=== PATIENT | female | born 1995 | race Caucasian/White ===

== ENCOUNTER 2016-08-06 18:16 | Emergency (ER) | payer OTHER ==
[~2016-08-06] VITALS: Ht 175.3 cm; Wt 64.4 kg
--- NOTE | 2016-08-06 19:15 | ED SKIN/ALLERGY COMPLAINT ---
History of Present Illness General Chief Complaint: Animal/Insect Bite Stated Complaint: SCRATCHED BY CAT Source: patient Exam Limitations: no limitations Vital Signs & Intake/Output Vital Signs & Intake/Output Vital Signs Date Time Temp Pulse Resp B/P Pulse O2 O2 Flow FiO2 Ox Delivery Rate 08/06 2026 97.8 94 18 124/60 100 Room Air 08/06 1854 98.7 88 20 121/77 99 Room Air ED Intake and Output 08/07 0000 08/06 1200 Intake Total 0 Output Total Balance 0 Intake, Oral 0 Patient 142 lb Weight Allergies Coded Allergies: No Known Allergies (08/06/16) Reconcile Medications Amoxicillin/Potassium Clav (Augmentin 875-125 Tablet) 875 MG-125 MG TABLET 1 TAB PO BID infection prevention Triage Note: TRIAGE: PT TO ER C/C STRAY CAT SCRATCH TO RIGHT WRIST/HAND AREA 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 Triage Nurses Notes Reviewed? yes : No Patient currently breastfeeds: No HPI: 20 yo woman, presents after she was scratched and bit by a stray kitten. She notes that she found a stray cat at [facility]. She tried to attend to the cat. The cat scratched her on her right wrist and bit her on her left hand finger. The cat then ran into the traffic and . Past History Travel History Traveled to [place] past 21 day No Medical History Any Pertinent Medical History? 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 No Review of Systems Review of Systems Constitutional: Reports: no symptoms. EENTM: Reports: no symptoms. Respiratory: Reports: no symptoms. Cardiovascular: Reports: no symptoms. GI: Reports: no symptoms. Genitourinary: Reports: no symptoms. Musculoskeletal: Reports: no symptoms. Skin: Reports: no symptoms. Neurological/Psychological: Reports: no symptoms. Hematologic/Endocrine: Reports: no symptoms. Immunologic/Allergic: Reports: no symptoms. All Other Systems: Reviewed and Negative Physical Exam Physical Exam General Appearance: well developed/nourished, mild distress Head: atraumatic Eyes: Bilateral: normal appearance. Ears, Nose, Throat: normal pharynx, normal ENT inspection, hearing grossly normal Neck: normal inspection, supple Respiratory: normal breath sounds Cardiovascular: regular rate/rhythm Gastrointestinal: soft, non-tender Back: normal inspection Extremities: normal range of motion, no edema, right hand 2 superficial scratches. left palm - > punctate lesion at palmaar aspect at distal 2nd mcp. No sign of infection. ROM is normal Neurologic/Psych: awake, alert, oriented x 3, normal mood/affect Lymphatic: no anterior cervical jossie Progress Differential Diagnosis: cat scratch. cat bite. Plan of Care: Current Medications Sig/Robert Start time Last Medication Dose Stop Time Status Admin Amoxicillin/ 1,000 MG ONCE ONE 08/06 1944 UNVr Clavulanate Potassium 08/06 1945 (Augmentin) Rabies Immune 1,200 UNITS ONCE ONE 08/06 1944 UNVr Globulin 08/06 1945 (Rabies Immune Globlulin Inj) Rabies Vaccine 1 SYR ONCE ONE 08/06 1944 UNVr (Rabies (Vaccine) 08/06 1945 Inj (1ML)) Departure Departure Disposition: HOME OR SELF CARE Condition: Stable Clinical Impression Primary Impression: Cat scratch Secondary Impressions: Cat bite Referrals: CHARMAINE JEFFERSON,BELIA Wesley (PCP/Family) Departure Forms: Customer Survey General Discharge Information Prescriptions: Current Visit Scripts Amoxicillin/Potassium Clav (Augmentin 875-125 Tablet) 1 TAB PO BID #14 TAB Comments pt received rabies vaccine, rabies immunoglobulin, and augmentin... pt instructed to follow up to complete rabies vaccine. Pt also given rx for augmentin and to follow up in 2 days for wound check. Signs and symptoms of infection discussed with patient.
[2016-08-06] MEDS ORDERED: AUGMENTIN 875-1 EACH PO (19:46)
[2016-08-06 20:27] VITALS: BP 124/60
== END 2016-08-06 21:15 ==
LOC: ERH 18:16
DX: S61.452A Open bite of left hand, initial encounter (principal); S60.811A Abrasion of right wrist, initial encounter; W55.01XA Bitten by cat, initial encounter
CPT/HCPCS: 90376; 90471; J3490

== ENCOUNTER 2016-08-21 18:23 | Emergency (ER) | payer OTHER ==
[~2016-08-21] VITALS: Ht 175.3 cm; Wt 63.5 kg
[~2016-08-21 18:23] MED LIST: AUGMENTIN 875-1 EACH PO
[2016-08-21 18:27] VITALS: BP 128/79
--- NOTE | 2016-08-21 18:39 | ED GENERAL ADULT ---
History of Present Illness General Chief Complaint: General Adult Stated Complaint: FOLLOW UP RABIES VACCINE Source: patient, old records Exam Limitations: no limitations Vital Signs & Intake/Output Vital Signs & Intake/Output Vital Signs Date Time Temp Pulse Resp B/P Pulse O2 O2 Flow FiO2 Ox Delivery Rate 08/21 1827 97.8 93 16 128/79 99 Room Air Allergies Coded Allergies: No Known Allergies (08/06/16) Reconcile Medications Amoxicillin/Potassium Clav (Augmentin 875-125 Tablet) 875 MG-125 MG TABLET 1 TAB PO BID infection prevention Triage Note: PT HERE FOR RABIES SHOT STATES SHE WAS SUPPOSE TO COME BACK ON THE FOR HER SECOND SHOT BUT STATES SHE HAD PROBLEMS WITH HER INSURANCE. Triage Nurses Notes Reviewed? yes Onset: 2 weeks ago Duration: week(s): (2) Timing: no prior history Injury Environment: home Severity Numbers: 1 No Modifying Factors: none : No Patient currently breastfeeds: No HPI: Patient is a 20-year-old female presenting to the emergency department for her second rabies vaccination. She was seen here on August 06 after a Bite which has since then healed but reports that she was given rabies vaccination and immunoglobulin and was told to come back in 3 days she had issues with her insurance so she couldn't make it back. She reports that every time she made to come back was extremely busy. Patient denies any nausea vomiting fevers chills chest pain or shortness of breath. No headaches or visual changes. She reports that she was finally able to come back today so that's why she did. ([place] ALEXIS) Past History Travel History Traveled to [place] past 21 day No Medical History Any Pertinent Medical History? 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 No ([place] ALEXIS) Review of Systems Review of Systems Constitutional: Reports: no symptoms. Comments Review of systems: See HPI, All other systems negative. Constitutional, no chills fever or weight loss HEENT: No visual changes no sore throat no congestion Cardiovascular: No chest pain ,palpitation Skin, no jaundice no rashes Respiratory: No dyspnea cough sputum or hemoptysis GI: No nausea no vomiting : No dysuria Muscle skeletal: no back pain, no neck pain, Neurologic: No numbness no confusion Psych: No stress anxiety or depression,. Heme/endocrine: No bruising no bleeding no polyuria or polydipsia Immunology: Up-to-date with immunizations ([place] ALEXIS) Physical Exam Physical Exam General Appearance: well developed/nourished, no apparent distress, alert, awake , comfortable Comments: Well-developed well-nourished no apparent distress. HEENT: Atraumatic, extraocular motion intact Neck: Supple, no lymphadenopathy Back: Nontender Respiratory: No respiratory distress Extremities: No edema, full range of motion Neuro: Alert and oriented x3 Psych: Mood affect normal, normal memory normal judgment. Core Measures ACS in differential dx? No CVA/TIA Diagnosis: No Severe Sepsis Present: No Septic Shock Present: No (VIR[place] ALEXIS) Progress Differential Diagnoses I considered the following diagnoses in my evaluation of the patient: A need for prophylaxis against rabies. Plan of Care: Current Medications Sig/Robert Start time Last Medication Dose Stop Time Status Admin Rabies Vaccine 1 SYR ONCE ONE 08/21 1844 UNVr (Rabies (Vaccine) 08/21 1845 Inj (1ML)) Initial ED EKG: none Comments: Patient had missed her scheduled for rabies vaccination. She was vaccinated today. She will return in 1 week for her third rabies vaccination and then one week after that for the final rabies vaccination. She'll return for any worsening symptoms or concerns. (VIRGINIA ALEXIS) Departure Departure Time of Disposition: 1836 Disposition: HOME OR SELF CARE Condition: Stable Clinical Impression Primary Impression: Need for prophylactic vaccination against rabies Referrals: CHARMAINE JEFFERSON,BELIA Wesley (PCP/Family) Additional Instructions: return in 1 week , tuesdayaug 28, for next rabies vaccine. Departure Forms: Customer Survey General Discharge Information ([place]IR[place] ALEXIS) PA/SPRING WINDER Co-Sign Statement Statement: ED Attending supervision documentation- [] I saw and evaluated the patient. I have also reviewed all the pertinent lab results and diagnostic results. I agree with the findings and the plan of care as documented in the PA's/SPRING WINDER's documentation. x I have reviewed the ED Record and agree with the PA's/SPRING WINDER's documentation. [] Additions or exceptions (if any) to the PAs/SPRING WINDER's note and plan are summarized below: [] (TATI JEFFERSON,LOVE) Critical Care Note Critical Care Note Critical Care Time: non-applicable (ADONIS BARNHART,[place])
== END 2016-08-21 19:06 ==
LOC: ERH 18:23
DX: Z20.3 Contact with and (suspected) exposure to rabies (principal)
CPT/HCPCS: 90471; 99281